=== PATIENT | male | born 1995 | race Two or more races ===

== ENCOUNTER 2021-04-15 17:55 | Emergency (ER) | payer OTHER ==
[2021-04-15 18:07] VITALS: BP 130/76
[2021-04-15] MEDS ORDERED: IBUPROFEN 600 MG TABLET PO STA (19:56)
--- NOTE | 2021-04-15 19:58 | ED Physician Documentation ---
History of Present Illness - Stated complaint Stated Complaint: HEADACHE,FEVER,SORE THROAT,CHILLS - Chief complaint Chief Complaint: Heent - Additonal information Additional information: 25-year-old male presents the emergency department for evaluation of 4 days cough, congestion, headache and fever. T-max 100.8. He is fully vaccinated for COVID-19 but a few members of his quadrant have tested positive for Covid. He is not a smoker. He called the nurse advice line and was told to come to the ER for second evaluation No history of tobacco. No history of asthma. No history of coronary artery disease or diabetes. Review of Systems Constitutional: reports: Fever, Chills, Myalgias, Fatigue Eyes: reports: Reviewed and negative Ears: reports: Reviewed and negative Nose: reports: Rhinorrhea / runny nose, Reviewed and negative Throat: reports: Sore throat Cardiac: denies: Chest pain / pressure Respiratory: reports: Cough. denies: Dyspnea GI: reports: Reviewed and negative : reports: Reviewed and negative Skin: reports: Reviewed and negative Musculoskeletal: reports: Reviewed and negative PD PAST MEDICAL HISTORY - Present Medications Home Medications: Ambulatory Orders Medication Instructions Recorded Confirmed Albuterol Sulfate [Proair Hfa 1 - 2 puffs INH Q4H PRN #1 gm 04/15/21 Inhaler] Benzonatate [Tessalon] 100 mg PO TID PRN #20 cap 04/15/21 - Allergies Allergies/Adverse Reactions: Allergies Allergy/AdvReac Type Severity Reaction Status Date / Time No Known Drug Allergies Allergy Verified 04/15/21 18:07 PD ED PE EXPANDED - General General: Alert, No acute distress, Well developed/nourished - HEENT HEENT: Moist mucous membranes, Pharynx normal - Cardiac Cardiac: Regular Rate, Radial strong equal, Pedal strong equal - Respiratory Respiratory: Clear to ausultation angie. No: Distress, Labored - Abdomen Abdomen: Normal Bowel sounds Results - Vitals Vitals: Vital Signs - 24 hr 04/15/21 18:04 Temperature 36.6 C Heart Rate 91 Respiratory 17 Rate Blood Pressure 130/76 O2 Saturation 98 Oxygen O2 Source Room air - Rads (name of study) CXR Radiology: Final report received (no acute process) PD MEDICAL DECISION MAKING - ED course Complexity details: reviewed results, re-evaluated patient, d/w patient ED course: 25-year-old male presents emergency department for evaluation of few days cough, congestion myalgias and body ache. He is vaccinated for COVID-19. A screening test is pending today. His cardiopulmonary auscultation is unremarkable. Room air saturations are normal. Chest x-ray is without acute focal opacity. I do suspect a viral upper respiratory infection. Discussed routine care of this. Prescription for Tessalon Perles and albuterol will be sent to the [facility] in [place]. Emergent return precautions were discussed. Departure - Departure Disposition: Home, Self Care Clinical Impression: Upper respiratory infection Qualifiers: URI type: unspecified viral URI Qualified Code(s): J06.9 - Acute upper respiratory infection, unspecified Condition: Stable Record reviewed to determine appropriate education?: Yes Instructions: ED Upper Resp Infec No Abx Tx Prescriptions: Albuterol Sulfate [Proair Hfa Inhaler] 1 - 2 puffs INH Q4H PRN #1 gm PRN Reason: Shortness Of Air/Wheezing Benzonatate [Tessalon] 100 mg PO TID PRN #20 cap PRN Reason: Cough Comments: Marco I hope you are feeling better soon. Your chest x-ray is normal. We do have a COVID-19 test pending on you. We should have the results in the next 24 to 48 hours. We will only notify you if it is positive. However you should quarantine until the results are known. I have sent a prescription for a cough suppressant to the [facility] in [place]. You may also benefit from using albuterol inhaler to help reduce the severity of your cough. Any [id number] cough suppressant or cold and flu mixture can be helpful however. I do recommend lots of liquids and staying hydrated. I do recommend 600 mg of ibuprofen 2-3 times a day to help with body aches and discomfort. If at any point you develop worsening symptoms, the cough does not improve after 10 days, you are severely short of air or develop chest pain then please return immediately to the ER for a second evaluation You have a Covid test pending. You need to self quarantine until the result is done and negative. Do not leave your house. Do not get near anybody. The results should be done in 48 to 72 hours. We will call with a positive result, the fastest way to get a negative result for confirmation though is to go to the hospital website at [email or web address], click on the my [facility] tab and sign up for the patient portal. If any friends or family get sick and would like to have a Covid test done, but do not have signs or symptoms that would necessitate being hospitalized, there are multiple local options for Covid testing. [facility] keeps an updated list of testing and vaccination options [email or web address]
--- NOTE | 2021-04-15 20:25 | XRAY Report ---
PROCEDURE: Chest 1 View X-Ray INDICATIONS: chest pain TECHNIQUE: One view of the chest was acquired. COMPARISON: None. FINDINGS: Surgical changes and devices: None. Lungs and pleura: No pleural effusions or pneumothorax. Lungs are clear. Mediastinum: Mediastinal contours appear normal. Heart size is normal. Bones and chest wall: No suspicious bony lesions. Overlying soft tissues appear unremarkable. IMPRESSION: 1. No acute cardiopulmonary disease. Reviewed by: Gorge Lehman MD on 04/15/2021 8:23 PM [facility] Approved by: Gorge Lehman MD on 04/15/2021 8:23 PM [facility] Station ID: [id number]
== END 2021-04-15 21:11 | disposition home or self-care (01) ==
LOC: ED 17:55
DX: U07.1 COVID-19 (principal); J06.9 Acute upper respiratory infection, unspecified
CPT/HCPCS: 71045; 87635; 99283; A9270

== ENCOUNTER 2021-10-07 12:20 | Emergency (ER) | payer OTHER ==
[2021-10-07 12:53] VITALS: BP 122/80
[2021-10-07] MEDS ORDERED: BACITRACIN ZINC OINT 1 PACKET TOP STA (13:03)
--- NOTE | 2021-10-07 13:23 | ED Physician Documentation ---
History of Present Illness - Stated complaint Stated Complaint: R INDEX AND MIDDLE FINGER INJ - Chief complaint Chief Complaint: Laceration - Additonal information Additional information: 25-year-old male presents emergency department for evaluation of lacerations to the palmar surface of his right index finger and right middle finger sustained when helping a friend move a furnace. It fell on his hand. Tetanus is up-to-date. He is right-hand dominant Review of Systems Constitutional: denies: Fever, Chills Ears: reports: Reviewed and negative Throat: reports: Reviewed and negative Cardiac: reports: Reviewed and negative Respiratory: reports: Reviewed and negative GI: reports: Reviewed and negative : reports: Reviewed and negative Skin: reports: Laceration (s) Musculoskeletal: reports: Reviewed and negative Neurologic: reports: Reviewed and negative PD PAST MEDICAL HISTORY - Past Medical History Past Medical History: Yes Cardiovascular: None Respiratory: None Neuro: None Endocrine/Autoimmune: None GI: None : None HEENT: None Psych: ADD/ADHD Musculoskeletal: None Derm: None - Past Surgical History Past Surgical History: No - Present Medications Home Medications: Ambulatory Orders Medication Instructions Recorded Confirmed Methylphenidate HCl 18 mg PO DAILY 10/07/21 10/07/21 [Methylphenidate ER] - Allergies Allergies/Adverse Reactions: Allergies Allergy/AdvReac Type Severity Reaction Status Date / Time No Known Drug Allergies Allergy Verified 10/07/21 12:48 - Social History Does the pt smoke?: No Smoking Status: Never smoker Does the pt drink ETOH?: No Does the pt have substance abuse?: No - Immunizations Immunizations are current?: Yes PD ED PE EXPANDED - Extremities Extremities: Left finger(s) (2.5 cm laceration right index finger palmar side distal to the PIP joint. Preserved flexion extension at PIP and DIP. 2 cm laceration palmar side right middle finger across the PIP joint. Preserved flexion extension against resistance.) Results - Vitals Vitals: Vital Signs - 24 hr 10/07/21 12:51 Temperature 36.3 C L Heart Rate 66 Respiratory 16 Rate Blood Pressure 122/80 O2 Saturation 96 Oxygen O2 Source Room air Procedures - Laceration (location) right fingers middle and index Length in cm: 4.5 Wound type: Linear, Into subcut fat, Into muscle, Clean Neurovascular status: Sensory intact, Motor intact, Vascular intact Tendon involvement: Tendon intact Anesthesia: Lidocaine 1% Wound preparation: Chlorhexadine, Irrigated copiously NS Deep layer closure: # sutures - enter number (5) Skin layer closure: Interrupted, Size #-0 - enter number (4) Other: Patient tolerated well, No complications, Dressing applied, Tetanus UTD PD MEDICAL DECISION MAKING - ED course Complexity details: d/w patient ED course: 25-year-old male presents emergency department for evaluation of 2 lacerations on palmar side of his right hand index and middle fingers. Though the middle fi nger laceration goes across the DIP joint there is no findings to suggest a tendon injury. Tetanus is up-to-date. Wounds were easily closed at the bedside. 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 Emergent return precautions were discussed for worsening symptoms or concerns of infection Departure - Departure Disposition: 01 Home, Self Care Clinical Impression: Laceration of finger Qualifiers: Encounter type: initial encounter Finger: middle finger Damage to nail status: without damage Foreign body presence: without foreign body Laterality: right Qualified Code(s): S61.212A - Laceration without foreign body of right middle finger without damage to nail, initial encounter Condition: Stable Record reviewed to determine appropriate education?: Yes Comments: Your suture(s) should be removed in 10 days. In 24 hours you may remove the dressing wash gently with warm soap and water, apply any antibiotic ointment and a simple bandage. Your tetanus is up-to-date. Please attempt to keep your wound clean and dry. Do not submerge it in dirty dishwater or bath water. While your lacerations heal I do recommend that you keep your fingers in extension to prevent movement and allow wound healing Return to the emergency department if you have any concerns of infection such as redness, fevers milky drainage increased pain.
== END 2021-10-07 13:35 | disposition home or self-care (01) ==
LOC: ED 12:20
DX: S61.212A Laceration without foreign body of right middle finger without damage to nail, initial encounter (principal); W22.8XXA Striking against or struck by other objects, initial encounter; Y93.E6 Activity, residential relocation
CPT/HCPCS: 12042; 99282; A9270

== ENCOUNTER 2023-06-30 06:10 | Emergency (ER) | payer OTHER ==
--- NOTE | 2023-06-30 06:38 | ED Physician Documentation ---
History of Present Illness - Stated complaint Stated Complaint: CHEST PX,SOA,NAUSEA - History obtained from History obtained from: Patient - Additonal information Additional information: The patient comes to the emergency department with chief complaint of cough, nasal congestion, and sore throat that started yesterday. He states that he has had some chest discomfort in the form of pain, mainly from coughing. He states he feels a little short of breath and that he feels some crackling in his upper airways this morning. He denies any fevers or chills. He has been slightly nauseated. He has no history of asthma or any other respiratory conditions and is otherwise fairly healthy. No other complaints at this time. PD PAST MEDICAL HISTORY - Past Medical History Cardiovascular: None Respiratory: None Neuro: None Endocrine/Autoimmune: None GI: None : None HEENT: None Psych: ADD/ADHD Musculoskeletal: None Derm: None - Past Surgical History Past Surgical History: No - Present Medications Home Medications: Ambulatory Orders Medication Instructions Recorded Confirmed Methylphenidate HCl 18 mg PO DAILY 10/07/21 10/07/21 [Methylphenidate ER] Albuterol Sulf [Ventolin Hfa 1 - 2 puffs INH Q4HR PRN #1 each 06/30/23 Inhaler] predniSONE [Deltasone] 60 mg PO DAILY 3 Days #9 tablet 06/30/23 - Allergies Allergies/Adverse Reactions: Allergies Allergy/AdvReac Type Severity Reaction Status Date / Time No Known Drug Allergies Allergy Verified 10/07/21 12:48 - Social History Does the pt smoke?: No Smoking Status: Never smoker Does the pt drink ETOH?: No Does the pt have substance abuse?: No - Immunizations Immunizations are current?: Yes PD ED PE NORMAL - Vitals Vital signs reviewed: Yes - General General: Alert and oriented X 3, No acute distress, Well developed/nourished, Other (Very well appearing patient) - HEENT HEENT: Atraumatic, PERRL, EOMI, Moist mucous membranes - Neck Neck: Supple, no meningeal sign - Cardiac Cardiac: RRR, No murmur - Respiratory Respiratory: No respiratory distress, Other (Faint wheezes and rhonchi throughout bilateral lung thompson. No prolonged expiratory phase. No rales.) - Abdomen Abdomen: Soft, Non tender, Non distended - Derm Derm: Warm and dry - Extremities Extremities: No deformity - Neuro Neuro: Alert and oriented X 3 - Psych Psych: Normal mood, Normal affect Results - Vitals Vitals: Vital Signs - 24 hr 06/30/23 06/30/23 06:33 06:39 Temperature 36 C L 36 C L Heart Rate 77 77 Respiratory 17 17 Rate Blood Pressure 121/95 H 121/95 H O2 Saturation 94 94 Oxygen O2 Source Room air - EKG (time done) 0620 EKG releavant findings:: EKG personally interpreted by author of this note. Relevant findings are: Rate: Rate (enter#) (72) Rhythm: NSR [place]: Normal Intervals: Normal [place] QRS: Normal Ischemia: Normal ST segments Compare to prior EKG: Old EKG unavailable Computer interpretation: Agree with computer - Rads (name of study) chest XR Relevant Findings:: EMP independent interpretation of test PD Medical Decision Making - ED course Complexity details: reviewed results, re-evaluated patient, considered differential, d/w patient ED course: The patient was worked up with EKG, respiratory PCR panel, and chest x-ray. EKG and chest x-ray were unremarkable. [place] it was highly likely the patient had a viral illness and I discussed this with him. He was given the information for our hospital website to look up his results if he wishes, and we will watch for his results here and notify him of any significant positives. I have prescribed an inhaler and short course of steroids for the patient as well. We discussed the usual indications for follow-up and return. Departure - Departure Disposition: 01 Home, Self Care Clinical Impression: Viral upper respiratory infection Condition: Stable Instructions: ED Viral Syndrome Prescriptions: Albuterol Sulf [Ventolin Hfa Inhaler] 1 - 2 puffs INH Q4HR PRN #1 each PRN Reason: Shortness Of Air/Wheezing predniSONE [Deltasone] 60 mg PO DAILY 3 Days #9 tablet Comments: Your EKG and chest x-ray look great. Your symptoms are most consistent with one of the many viral illnesses that are going around right now. In general, these viruses last anywhere from several days to a couple of weeks, but ultimately, go away on their own. We recommend drinking plenty of fluids and getting rest during the initial phases of the illness. When your symptoms are starting to resolve, you may go back to work. For now, because you have had some wheezing on exam, we have prescribed an albuterol inhaler and a short course of steroids to help clear this up. Prescription for this has been electronically transmitted to the [facility] pharmacy in [place] and you should pick the medicines up a little later this morning. A nasal swab for respiratory panel has been sent to the lab and is pending at this time. If there are any significant positive results, we will call you at home. If you would like to monitor for negative results, you may go to our hospital website at [email or web address], click on the "my [facility]" tab, and sign up for the patient portal. You can check your medical records, including lab results, there. Please follow-up with your primary doctor as needed. If you become exceedingly short of breath or develop other significant concerns, you may return to the emergency department for reevaluation. Forms: Activity restrictions
[2023-06-30 06:48] VITALS: BP 121/95; O2SAT 94
--- NOTE | 2023-06-30 07:06 | XRAY Report ---
PROCEDURE: Chest 1V INDICATIONS: chest pain/cough/sob TECHNIQUE: One view of the chest was acquired. COMPARISON: CXR 04/15/2021. FINDINGS: Surgical changes and devices: None. Lungs and pleura: No pleural effusions or pneumothorax. Lungs are clear. Mediastinum: Mediastinal contours appear normal. Heart size is normal. Bones and chest wall: No suspicious bony lesions. Overlying soft tissues appear unremarkable. IMPRESSION: No acute cardiopulmonary process. Reviewed by: Conrad Cid MD on 06/30/2023 7:05 AM [facility] Approved by: Conrad Cid MD on 06/30/2023 7:05 AM [facility] Station ID: [id number]
== END 2023-06-30 06:58 | disposition home or self-care (01) ==
LOC: ED 06:10
DX: J06.9 Acute upper respiratory infection, unspecified (principal)
CPT/HCPCS: 87633; 99283; 99284